=== PATIENT | male | born 1990 | race Caucasian/White ===

== ENCOUNTER → 2021-11-04 | Outpatient (CLI) | payer BC ==
--- NOTE | 2021-11-04 16:03 | US ---
EXAMINATION TYPE: US abdomen complete DATE OF EXAM: 11/04/2021 COMPARISON: NONE CLINICAL HISTORY: R79.89 abnormal findings of blood chemistry. elevated AST,ALT, no symptoms EXAM MEASUREMENTS: Liver Length: 16.3cm Gallbladder Wall: 0.2cm CBD: 0.4 cm Spleen: 11.3 cm Right Kidney: 11.8 x 4.2 x 5.9cm Left Kidney: 11.3 x 4.0 x 5.5cm overlying bowel gas obscures images Pancreas: not seen Liver: left lobe obscured by bowel gas, right lobe wnl Gallbladder: wnl Evidence for sonographic Han's sign: no CBD: wnl Spleen: wnl Right Kidney: wnl Left Kidney: wnl Upper IVC: wnl Abd Aorta: wnl IMPRESSION: 1. Visualized abdomen ultrasound is unremarkable.
== END | disposition home or self-care (01) ==
LOC: RADUSWWP 07:13
PROVIDERS: ATTEND Internal Medicine
DX: R79.89 Other specified abnormal findings of blood chemistry (principal)
CPT/HCPCS: 76700

== ENCOUNTER → 2021-12-02 | Outpatient (CLI) | payer BC ==
--- NOTE | 2021-12-02 13:55 | ECHOS ---
STRESS ECHOCARDIOGRAM INDICATIONS: Chest pain BASELINE HEART RATE: 66 BASELINE BLOOD PRESSURE: 98/54 MAXIMUM HEART RATE: 168 MAXIMUM BLOOD PRESSURE: 169/56 85% MPHR: 160 100% MPHR: 188 METS: MAXIMUM STAGE REACHED: TOTAL EXERCISE TIME: CLINICAL INFORMATION: Baseline rhythm is a sinus mechanism, rate of 66, borderline right axis deviation, normal intervals. Baseline blood pressure 98/54 mmHg. Patient exercised on Thang protocol for 11 minutes, reaching peak rate of 168 beats per minute, which is equal to 89% of maximum predicted heart rate. Peak blood pressure 169/56 mmHg. Test was terminated secondary to fatigue. There was no chest pain. Electrocardiograph monitoring revealed no evidence of diagnostic ischemic ST deviation. FINDINGS: Baseline echocardiogram revealed normal wall thickening and motion. At peak exercise, there was normal wall motion augmentation with no hypokinesis or dyskinesis. CONCLUSION: 1. Good exercise tolerance with normal electrocardiograph response to exercise. 2. Normal stress echocardiogram with no evidence of stress-induced ischemia. MMODL / IJN: [id number] /
== END | disposition home or self-care (01) ==
LOC: RADNMMAIN 09:20
PROVIDERS: ATTEND Internal Medicine
DX: R07.9 Chest pain, unspecified (principal)
CPT/HCPCS: 93351